=== PATIENT | female | born 1945 | race Two or more races ===

== ENCOUNTER 2023-07-11 11:49 | Emergency (ER) | payer OTHER ==
[~2023-07-11] VITALS: Ht 160 cm; Wt 81.2 kg
[2023-07-11] MEDS ORDERED: EVOXAC30 MG PO (12:13)
[2023-07-11] MEDS ORDERED: GLYXAMBI 25 MG1 EACH PO (12:13)
[2023-07-11] MEDS ORDERED: COZAAR100 MG PO (12:13)
[2023-07-11] MEDS ORDERED: NORVASC2.5 M1 PO (12:13)
[2023-07-11] MEDS ORDERED: LIPITOR40 M1 PO (12:14)
[2023-07-11] MEDS ORDERED: METFORMIN HCL500 M4 PO (12:14)
[2023-07-11] MEDS ORDERED: CHILDREN'S ASPI81 MG PO (12:15)
[2023-07-11 14:31] LABS: HEMATOCRIT 35.9 % (36.0-45.00); HEMOGLOBIN 11.9 g/dL (12.0-15.00); MEAN CELL VOLUME 93.9 fL (80.00-100.00); MEAN CORPUSCULAR HEMOGLOBIN 31.1 pg (27.00-32.0); MEAN CORPUSCULAR HGB CONC 33.1 g/dl (32.0-36.0); PLATELET COUNT 289 K/uL (150-450); RED BLOOD COUNT 3.82 M/uL (4.00-6.00); RED CELL DISTRIBUTION WIDTH 14.1 % (11.5-14.5)
[2023-07-11 14:48] LABS: URINE APPEARANCE Clear; URINE BILIRRUBIN Negative (NEGATIVE); URINE BLOOD Large; URINE COLOR Yellow; URINE LEUKOCYTE Trace; URINE NITRATE Negative; URINE PROTEIN 30 (NEGATIVE); URINE UROBILINOGEN 0.2 E.U./dl
[2023-07-11 14:51] LABS: URINE BACTERIA 235.5 uL (0.0-1933); URINE EPITHELIAL CELLS 14.2 uL (0.0-38.8); URINE RBC 305.2 uL (0.0-20.8); URINE WBC 309.2 uL (0.0-23.2)
[2023-07-11 14:53] LABS: URINE GLUCOSE >=1000 MG/DL (NEGATIVE)
[2023-07-11 14:58] LABS: CALCIUM 9.5 mg/dL (8.5-10.1); CREATININE SERUM 1.08 mg/dL (0.55-1.02); GFR 49.19; POTASSIUM 3.93 mEq/L (3.5-5.1)
[2023-07-11] MEDS ORDERED: CEFTRIAXONE SODIUM 2,000 MG VIAL IV ONE (15:45)
== END 2023-07-11 16:28 | disposition home or self-care (01) ==
LOC: ER 11:50
PROVIDERS: General Practice
DX: R30.0 Dysuria (principal); Z88.6 Allergy status to analgesic agent; E11.9 Type 2 diabetes mellitus without complications; Z79.84 Long term (current) use of oral hypoglycemic drugs; I10 Essential (primary) hypertension; E78.00 Pure hypercholesterolemia, unspecified; M79.7 Fibromyalgia; E88.810 Metabolic syndrome; G40.A09 Absence epileptic syndrome, not intractable, without status epilepticus
CPT/HCPCS: 36415; 96365; 99282; J0696